=== PATIENT | male | born 1980 | race Caucasian/White ===

== ENCOUNTER 2017-05-14 16:34 | Emergency (ER) | payer BC ==
[~2017-05-14] VITALS: Ht 190.5 cm; Wt 84.1 kg
[2017-05-14 16:35] VITALS: BP 160/93
[2017-05-14] MEDS ORDERED: LIDOCAINE 1% MDV 20ML VIAL SC ONE (18:45)
== END 2017-05-14 19:00 | disposition home or self-care (01) ==
LOC: M ED 16:34 → EDBD 16:34 → M ED 19:00
DX: S61.412A Laceration without foreign body of left hand, initial encounter (principal); W31.2XXA Contact with powered woodworking and forming machines, initial encounter; Y92.89 Other specified places as the place of occurrence of the external cause; Y93.H3 Activity, building and construction; Y99.0 Civilian activity done for income or pay; F17.210 Nicotine dependence, cigarettes, uncomplicated